=== PATIENT | male | born 1965 ===

== ENCOUNTER 2017-01-12 00:45 | Emergency (ER) | payer MEDICARE, OTHER ==
[2017-01-12 00:46] VITALS: PULSE 70
[2017-01-12 00:51] VITALS: BMI 59.3
[2017-01-12 01:14] VITALS: RESP 18; O2SAT 98
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
[2017-01-12 02:13] LABS: ADD MANUAL DIFF? NO
[2017-01-12 02:17] LABS: BASO # 0.03 K/mm3 (0.0-2.0); BASO % 0.3 % (0.0-3.0); EOS # 0.1 (0.0-0.7); EOS % 1.4 % (1.5-5.0); GRAN # 6.44 (1.4-6.5); GRAN % 66.1 % (50.0-68.0); HEMATOCRIT 48.6 % (42.0-52.0); LYMPH # 2.6 (1.2-3.4); LYMPH % 26.9 % (22.0-35.0); MEAN CELL VOLUME 102.3 fL (80.0-105.0); MEAN CORPUSCULAR HEMOGLOBIN 35.4 pg (25.0-35.0); MEAN CORPUSCULAR HGB CONC 34.6 g/dl (31.0-37.0); MEAN PLATELET VOLUME 12.2 fl (7.0-11.0); MONO # 0.5 (0.1-0.6); MONO % 5.3 % (1.0-6.0); PLATELET COUNT 143 10^3/uL (120.0-450.0); WHITE BLOOD COUNT 9.8 10^3/ul (4.5-11.0)
[2017-01-12 02:24] LABS: ALB/GLOB RATIO 1.2 (1.1-1.8); ALKALINE PHOSPHATASE 88 U/L (38-133); ALT/SGPT 26 U/L (7-56); AST/SGOT 33 U/L (15-59); BILIRUBIN,TOTAL 0.8 mg/dL (0.2-1.3); BLOOD UREA NITROGEN 15 mg/dL (7-21); CALCIUM 9.4 mg/dL (8.4-10.5); CARBON DIOXIDE 26 mmol/L (21-33); CHLORIDE 99 mmol/L (98-107); GFR AFRICAN-AMERICAN > 60; GLUCOSE,RANDOM 90 mg/dL (70-110); SODIUM 137 mmol/L (132-148); TOTAL PROTEIN 7.8 g/dL (5.8-8.3)
--- NOTE | 2017-01-12 02:48 | CT ---
EXAM: CT Maxillofacial Without Intravenous Contrast. CLINICAL HISTORY: 51 years old, male; Injury or trauma; Fall; Initial encounter; Abrasion; Forehead TECHNIQUE: Axial computed tomography images of the face without intravenous contrast. This CT exam was performed using one or more of the following dose reduction techniques: automated exposure control, adjustment of the mA and/or kV according to patient size, and/or use of iterative reconstruction technique. EXAM DATE/TIME: 01/12/2017 1:04 AM COMPARISON: CT - HEAD W/O CONTRAST 12/18/2016 3:20:24 AM FINDINGS: There is subcutaneous soft tissue swelling in the right frontal region. Left maxillary retention cyst. No air-fluid levels within the sinuses. No fractures. The orbital globes appear normal. IMPRESSION: No fractures.
[2017-01-12 04:47] VITALS: BP 148/84; PULSE 80; TEMP 97.9
== END 2017-01-12 04:48 | disposition home or self-care (01) ==
LOC: ED 00:45
DX: Z04.3 Encounter for examination and observation following other accident (principal); W01.0XXA Fall on same level from slipping, tripping and stumbling without subsequent striking against object, initial encounter; Y93.01 Activity, walking, marching and hiking; Y92.480 Sidewalk as the place of occurrence of the external cause
CPT/HCPCS: 70486; 80053; 85025; 99282; G0480

== ENCOUNTER 2017-07-17 21:32 | Inpatient (IN) | payer OTHER, MEDICARE ==
[2017-07-17 21:32] VITALS: PULSE 70
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
[2017-07-17] MEDS ORDERED: diltiaZEM IVPB 100mg in NS 100 ML IV PRN (22:03)
[2017-07-17 22:16] VITALS: BMI 56.7
[2017-07-17 22:50] LABS: BASO # 0.05 K/mm3 (0.0-2.0); BASO % 0.5 % (0.0-3.0); EOS # 0.2 (0.0-0.7); GRAN # 6.09 (1.4-6.5); GRAN % 56.6 % (50.0-68.0); HEMATOCRIT 49.1 % (42.0-52.0); LYMPH # 3.3 (1.2-3.4); MEAN CELL VOLUME 97.6 fl (80.0-105.0); MEAN CORPUSCULAR HEMOGLOBIN 34.2 pg (25.0-35.0); MEAN PLATELET VOLUME 11.9 fl (7.0-11.0); MONO # 1.1 (0.1-0.6); MONO % 9.9 % (1.0-6.0); RED CELL DISTRIBUTION WIDTH 12.7 % (11.5-14.5); WHITE BLOOD COUNT 10.7 10^3/ul (4.5-11.0)
[2017-07-17 22:59] LABS: ALB/GLOB RATIO 1.3 (1.1-1.8); ALKALINE PHOSPHATASE 97 U/L (38-126); ALT/SGPT 39 U/L (7-56); AST/SGOT 20 U/L (17-59); BILIRUBIN,TOTAL 0.7 mg/dL (0.2-1.3); BLOOD UREA NITROGEN 15 mg/dL (7-21); CALCIUM 9.8 mg/dL (8.4-10.5); CARBON DIOXIDE 28 mmol/L (21-33); CHLORIDE 104 mmol/L (98-107); GFR AFRICAN-AMERICAN > 60; GLUCOSE,RANDOM 119 mg/dL (70-110); MAGNESIUM 2.1 mg/dL (1.7-2.2); POTASSIUM 4.7 mmol/L (3.6-5.0); SODIUM 143 mmol/L (132-148); TOTAL PROTEIN 7.4 g/dL (5.8-8.3)
[2017-07-17 23:02] LABS: INR 1.04 (0.93-1.08)
[2017-07-17 23:11] LABS: TROPONIN I 0.03 ng/mL
[2017-07-17] MEDS ORDERED: Enoxaparin 100 mg Syringe SC STA (23:33)
[2017-07-18 04:29] LABS: URINE BILIRUBIN SMALL (NEGATIVE); URINE BLOOD NEGATIVE (NEGATIVE); URINE GLUCOSE (UA) NEGATIVE (NEGATIVE); URINE KETONE TRACE mg/dL (NEGATIVE); URINE LEUKOCYTE ESTERASE SMALL Leu/uL (NEGATIVE); URINE PROTEIN 30 mg/dL (<30 mg/dL); URINE UROBILINOGEN 0.2 E.U./dL (<1 E.U./dL)
[2017-07-18 04:37] LABS: URINE APPEARANCE SL CLOUDY (CLEAR); URINE COLOR YELLOW (YELLOW)
[2017-07-18 04:50] LABS: URINE BACTERIA LARGE (NEG)
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
--- NOTE | 2017-07-18 11:49 | RAD ---
HISTORY: admission COMPARISON: 12/18/2016 FINDINGS: LUNGS: Examination limited due to failure to include right costophrenic angle/ lower lateral right gene thorax. No infiltrate. PLEURA: No significant pleural effusion identified, no pneumothorax apparent. CARDIOVASCULAR: Normal. OSSEOUS STRUCTURES: No significant abnormalities. VISUALIZED UPPER ABDOMEN: Normal. OTHER FINDINGS: None. IMPRESSION: Normal limited examination.
--- NOTE | 2017-07-18 14:15 | CARD ---
APPROVED REPORT EXAM: Two-dimensional and M-mode echocardiogram with Doppler and color Doppler. INDICATION Atrial Fibrillation 2D DIMENSIONS Left Atrium (2D)3.8 (1.6-4.0cm)IVSd1.7 (0.7-1.1cm) LVDd5.2 (3.9-5.9cm)PWd1.6 (0.7-1.1cm) LVDs3.5 (2.5-4.0cm)FS (%) 32.1 % LVEF (%)60.1 (>50%) M-Mode DIMENSIONS Aortic Root2.50 (2.2-3.7cm)Aortic Cusp Exc.2.40 (1.5-2.0cm) Aortic Valve AoV Peak [id number]/[place] Peak GR.5mmHg Mitral Valve E/A ratio0.0 TDI E/Lateral E'0.0E/Medial E'0.0 Tricuspid Valve TR Peak [id number]/sRAP [id number] Peak Gr.10mmHg [id number] LEFT VENTRICLE The left ventricle is normal size. There is mild concentric left ventricular hypertrophy. Left ventricle ejection fraction is normal. Mild Septal hypokinesis RIGHT VENTRICLE The right ventricle is mildly dilated. There is normal right ventricular wall thickness. The right ventricular systolic function is normal. ATRIA The left atrium size is normal. The right atrium size is normal. AORTIC VALVE The aortic valve is not well visualized. No aortic regurgitation is present. There is no aortic valvular stenosis. MITRAL VALVE The mitral valve is not well visualized. TRICUSPID VALVE There is no pulmonary hypertension. GREAT VESSELS The aortic root is normal in size. The IVC collapses <50% with inspiration. PERICARDIAL EFFUSION There is a trace loculated anterior pericardial effusion. <Conclusion> Poor Echo window The left ventricle is normal size. There is mild concentric left ventricular hypertrophy. Left ventricle ejection fraction is normal. Mild Septal hypokinesis
[2017-07-19 06:54] VITALS: O2SAT 99
--- NOTE | 2017-07-19 08:27 | CARD ---
APPROVED REPORT EKG Measurement Heart [id number] <Conclusion> Atrial fibrillation with rapid ventricular respons Left anterior fascicular block PRWP NSSTW changes Prolonged QTc
[2017-07-19] MEDS ORDERED: diltiaZEM 180 mg/24 Hours CD Cap PO SCH (10:00)
[2017-07-19 12:23] VITALS: RESP 18
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
[2017-07-19 18:21] VITALS: BP 123/72; PULSE 65; TEMP 98.7
== END 2017-07-19 17:57 | disposition home or self-care (01) | DRG 310 ==
LOC: ED 21:32 → ERH 07-18 00:16 → 2RSO 07-18 01:16
PROVIDERS: ADMIT Internal Medicine Nephrology; ATTEND Internal Medicine Nephrology
DX: I48.0 Paroxysmal atrial fibrillation (principal); I10 Essential (primary) hypertension; I48.2 Chronic atrial fibrillation; Z91.14 Patient's other noncompliance with medication regimen; E66.9 Obesity, unspecified; G89.29 Other chronic pain; M54.9 Dorsalgia, unspecified; V89.2XXA Person injured in unspecified motor-vehicle accident, traffic, initial encounter; Y92.410 Unspecified street and highway as the place of occurrence of the external cause; Z98.84 Bariatric surgery status

== ENCOUNTER 2018-08-13 17:14 | Emergency (ER) | payer OTHER, MEDICARE ==
[2018-08-13 17:14] VITALS: PULSE 70
[2018-08-13 17:29] VITALS: BMI 66.4
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
[2018-08-13] MEDS ORDERED: Sodium Chloride 0.9% 1,000 ML IV STA (17:35)
[2018-08-13 17:44] VITALS: TEMP 98.1
[2018-08-13 19:12] LABS: BASO # 0.02 K/mm3 (0.0-2.0); BASO % 0.3 % (0.0-3.0); EOS # 0.1 (0.0-0.7); EOS % 1.7 % (1.5-5.0); GRAN # 5.05 (1.4-6.5); HEMOGLOBIN 16.5 g/dL (14.0-18.0); LYMPH # 1.9 (1.2-3.4); LYMPH % 24.4 % (22.0-35.0); MEAN CELL VOLUME 106.2 fl (80.0-105.0); MEAN CORPUSCULAR HEMOGLOBIN 36.6 pg (25.0-35.0); MEAN CORPUSCULAR HGB CONC 34.4 g/dl (31.0-37.0); MEAN PLATELET VOLUME 11.2 fl (7.0-11.0); MONO # 0.6 (0.1-0.6); MONO % 7.6 % (1.0-6.0); RBC 4.51 10^6/uL (3.5-6.1); RED CELL DISTRIBUTION WIDTH 12.5 % (11.5-14.5); WHITE BLOOD COUNT 7.7 10^3/uL (4.5-11.0)
[2018-08-13 19:21] LABS: INR 0.95; PROTHROMBIN TIME 10.8 SECONDS (9.4-12.5)
[2018-08-13 19:31] LABS: ALB/GLOB RATIO 1.2 (1.1-1.8); ALBUMIN 4.1 g/dL (3.0-4.8); ALT/SGPT 27 U/L (7-56); AST/SGOT 32 U/L (17-59); BLOOD UREA NITROGEN 14 mg/dL (7-21); GFR NON-AFRICAN AMERICAN > 60
[2018-08-13 19:33] LABS: ACETAMINOPHEN < 10.0 ug/ml (10.0-20.0); SALICYLATE < 1 mg/dL (2.0-20.0)
[2018-08-13 22:16] VITALS: BP 135/80; PULSE 70; RESP 17; O2SAT 96
--- NOTE | 2018-08-14 10:26 | CARD ---
APPROVED REPORT Date of service: 08/13/2018 EKG Measurement Heart [id number] <Conclusion> Normal sinus rhythm Nonspecific intraventricular conduction delay LAD, possible LAHB No change
== END 2018-08-13 19:48 | disposition left against medical advice (07) ==
LOC: ED 17:14
DX: Z04.1 Encounter for examination and observation following transport accident (principal); V47.5XXA Car driver injured in collision with fixed or stationary object in traffic accident, initial encounter; W22.11XA Striking against or struck by driver side automobile airbag, initial encounter; Y92.410 Unspecified street and highway as the place of occurrence of the external cause; Z91.19 Patient's noncompliance with other medical treatment and regimen; I48.91 Unspecified atrial fibrillation
CPT/HCPCS: 80053; 83735; 85025; 85610; 85730; 93005; 99284; G0480

== ENCOUNTER 2019-02-15 13:18 | Outpatient (CLI) | payer MEDICARE, OTHER | END 2019-02-15 13:19 | disposition home or self-care (01) | LOC: RAD 13:18 ==